=== PATIENT | female | born 1965 | race Caucasian/White ===

== ENCOUNTER 2020-11-30 10:09 | Emergency (ER) | payer MEDICARE, SELFPAY ==
[2020-11-30 10:30] VITALS: BP 169/82; PULSE 111; RESP 18; TEMP 36.3; O2SAT 98
--- NOTE | 2020-11-30 10:42 | ED.GENADULT ---
HPI - General Adult General Chief complaint: Upper Respiratory Infection Stated complaint: chest congestion Source: patient Mode of arrival: ambulatory Limitations: no limitations History of Present Illness HPI narrative: Patient presents for evaluation of respiratory symptoms for the last week. She states she initially had a sore throat, right ear pain, productive cough of brown sputum. She went to an urgent care in [facility] where she lives and was given prescriptions for azithromycin and Tessalon. She is currently here visiting family. Symptoms seem to improve while on azithromycin. She completed antibiotic therapy 2 days ago. She states yesterday she began feeling ill again. She currently endorses right-sided ear pain, sore throat, nonproductive cough. She states she checked her temperature last night and was 99.4 Fahrenheit. She also experienced some chills within the last 24 hours. She denies any nausea, vomiting, body aches. She states several other family member with whom she has bee in contact also have respiratory symptoms. She does not smoke. She did receive COVID vaccination. She is diabetic but states home blood sugars average at 105. States she has a history of recurrent pneumonia. Has not been treated for such in last several years. Related Data Allergies Allergy/AdvReac Type Severity Reaction Status Date / Time No Known Allergies Allergy Verified 11/30/20 11:24 Review of Systems Review of Systems: Narrative: CONSTITUTIONAL: Reports fever and chills. EYES: Denies visual changes, redness, or discharge. ENT: Reports sore throat and right-sided otalgia CARDIOVASCULAR: Denies chest pain, palpitations, or edema. RESPIRATORY: Reports cough. Reports SOB earlier this week, now resolved GASTROINTESTINAL: Denies abdominal pain, nausea, vomiting, or diarrhea. GENITOURINARY: Denies dysuria or hematuria. SKIN: Denies rash or itching. MUSCULOSKELETAL: Denies back pain, joint pain, or myalgia. NEUROLOGIC: Denies headache, numbness, dizziness, or weakness. PSYCHIATRIC: Denies anxiety or depression. [facility] Past Medical History Medical History (Updated 11/30/20 @ 11:24 by Jaylan Mendez, ERLINDA, ) Diabetes Surgical History Surgical History No pertinent past surgical history Family History Family History (Updated 11/30/20 @ 10:51 [facility] Mother No pertinent past medical history Social History Social History (Updated 11/30/20 @ 10:51 [facility] Smoking status: Never smoker Alcohol intake: never Substance use: never Living arrangements: with family Gender identity (if verbalized by the patient): Female Sexual Orientation (if Verbalized by the Patient): Straight or Heterosexual Spiritual care concerns: No Exam Narrative: Exam Narrative: GENERAL: Well-appearing, well-nourished, and in no acute distress. HEAD: Normocephalic, atraumatic. EYES: PERRLA and EOMI. ENT: Nares clear, no rhinorrhea or epistaxis. Mucous membranes moist. Oropharynx without tonsillar hypertrophy exudate or other lesions. Bilateral TMs pearly león nonbulging however there is middle ear fluid present bilaterally NECK: Supple. No adenopathy or masses. No carotid bruits or JVD CHEST: Clear to auscultation. No respiratory distress. cough noted on exam. Mild inspiratory and expiratory wheezes bilaterally in posterior lung hendrix. HEART: Regular rate and rhythm. No murmur heard. Normal peripheral pulses. ABDOMEN: Soft, nontender, nondistended, normal active bowel sounds. EXTREMITIES: Normal range of motion. No edema. SKIN: Warm, dry, no rash. NEURO: No focal deficits. Alert and oriented x3. PSYCH: Normal mood and affect. Course Course Emergency Course: This is a 55-year-old female who presented with complaints of respiratory symptoms. She was recently provided with a prescription for azithromycin which she comple
== END 2020-11-30 11:30 | disposition home or self-care (01) ==
PROVIDERS: Emergency Provider Nurse Practitioner
DX: J18.9 Pneumonia, unspecified organism (principal); Z20.822 Contact with and (suspected) exposure to COVID-19; E11.9 Type 2 diabetes mellitus without complications
CPT/HCPCS: 87081; 87426; 87880; 99203; C9803; G0463

== ENCOUNTER 2021-08-31 15:53 | Emergency (ER) | payer MEDICARE, SELFPAY ==
[2021-08-31 16:11] VITALS: BP 152/64; PULSE 91; RESP 17; TEMP 36.2; O2SAT 99
--- NOTE | 2021-08-31 16:16 | ED.URI ---
HPI - URI/Sore Throat General Chief Complaint: Upper Respiratory Infection Stated Complaint: sorethroat,bilateral ear pain Time Seen by Provider: 08/31/21 16:16 Source: patient Mode of arrival: ambulatory Limitations: no limitations History of Present Illness HPI Narrative: 56-year-old female presents with complaint of sore throat, bilateral ear pain, worse to left ear and fatigue for 2 days. No recent strep exposure. Does report that her grandsons had runny nose and ear infections last week. Afebrile. Denies chills, body aches. Denies nausea vomiting diarrhea. No coughing. All systems reviewed and negative except as noted above. Related Data Home Medications Medication Instructions Recorded Confirmed amlodipine 10 mg PO DAILY 08/31/21 08/31/21 gabapentin 300 mg PO DAILY 08/31/21 08/31/21 glimepiride 4 mg PO BID 08/31/21 08/31/21 liraglutide [Victoza 2-Ankit] 6 mg SUBCUT DIRECTED 08/31/21 08/31/21 lisinopril 40 mg PO DAILY 08/31/21 08/31/21 metformin 100 mg PO BID 08/31/21 08/31/21 Allergies Allergy/AdvReac Type Severity Reaction Status Date / Time atorvastatin Allergy Unknown Verified 08/31/21 16:21 Review of Systems Review of Systems: CONSTITUTIONAL: Denies fever, chills, or sweats. Reports fatigue. EYES: Denies visual changes, redness, or discharge. ENT: Denies rhinorrhea, congestion. Reports sore throat and bilateral ear pain. CARDIOVASCULAR: Denies chest pain, palpitations, or edema. RESPIRATORY: Denies cough or dyspnea. GASTROINTESTINAL: Denies abdominal pain, nausea, vomiting, or diarrhea. GENITOURINARY: Denies dysuria or hematuria. SKIN: Denies rash or itching. MUSCULOSKELETAL: Denies back pain, joint pain, or myalgia. NEUROLOGIC: Denies headache, numbness, or weakness. PSYCHIATRIC: Denies anxiety or depression. All other systems reviewed are negative, except as documented in HPI. [facility] Past Medical History Medical History (Updated 08/31/21 @ 16:35 by Maya Justin NP) Diabetes Surgical History Surgical History No pertinent past surgical history Family History Family History (Updated 11/30/20 @ 10:51 by Jaylan Mendez [facility]) Mother No pertinent past medical history Social History Social History (Updated 11/30/20 @ 10:51 by Jaylan Mendez [facility]) Smoking status: Never smoker Alcohol intake: never Substance use: never Gender identity (if verbalized by the patient): Female Sexual Orientation (if Verbalized by the Patient): Straight or Heterosexual Spiritual care concerns: No Comments At time of signature, agree with nursing past medical, surgical, social and family history. There is no relevant family history pertinent to the presenting complaint. Exam Narrative: GENERAL: This is a well-nourished, well-developed patient, in no apparent distress. HEAD: normocephalic, atraumatic. EYES: PERRL. Sclera clear/white. Vision is grossly intact. EARS: External ears normal, auditory canals clear and without drainage. Fluid to bilateral TMs with mild erythema. NOSE: External nose normal with no obvious nasal discharge, nares without redness, no rhinorrhea. THROAT: Mucous membranes moist, mild erythema to posterior pharynx. NECK: Neck supple, non-tender without lymphadenopathy, masses or thyromegaly. CARDIOVASCULAR: Regular rate and rhythm without murmurs, gallops, or rubs. RESPIRATORY: Clear to auscultation. Breath sounds equal bilaterally. No wheezes, rales, or rhonchi. SKIN: warm, Dry, intact with no suspicious lesions or rash, good texture and turgor. NEURO: awake, alert, and oriented to person, place and time. There were no obvious focal neurologic abnormalities. EXTREMITIES: Normal range of motion to all extremities. Course Course Level of Care: Express Care Visit Vital Signs Vital signs: Vital Signs Temperature 36.2 C L 08/31/21 16:11 Pulse Rate 91 08/31/21 16:11 Respiratory Rate 1
[2021-08-31 16:24] VITALS: BP 152/64; PULSE 91; RESP 17; TEMP 36.2; O2SAT 99
== END 2021-08-31 16:41 | disposition home or self-care (01) ==
PROVIDERS: Emergency Provider Nurse Practitioner Family
DX: J02.9 Acute pharyngitis, unspecified (principal); H65.03 Acute serous otitis media, bilateral; E11.9 Type 2 diabetes mellitus without complications
CPT/HCPCS: 87081; 87880; 99213; G0463